=== PATIENT | female | born 2000 | race Caucasian/White ===

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

== ENCOUNTER 2024-08-19 12:19 | Emergency (ER) | payer SELFPAY ==
[2024-08-19 12:22] VITALS: BP 109/77; PULSE 99; TEMP 36.8; O2SAT 95; BMI 21.9
[2024-08-19 12:58] LABS: Basophils % 0.1 %; Eosinophils % 0.2 %; Hematocrit 45.4 % (36-47); Lymphocytes # 0.5 10^3/uL (0.8-4.8); Lymphocytes % 5.9 %; Mean Corpuscular HGB Conc 33.5 g/dL (30-55); Mean Corpuscular Hemoglobin 32.1 pg (27-33); Mean Platelet Volume 9.2 fL (7.4-10.4); Monocytes # 0.4 10^3/uL (0.2-0.9); Monocytes % 4.4 %; Neutrophils # 7.92 10^3/uL (1.8-7.7); Neutrophils % 89.2 %; Nucleated Red Blood Cells % 0 %; Platelet Count 249 10^3/cmm (157-399); Red Blood Count 4.73 10^6/uL (3.85-5.65); Red Cell Distribution Width 11.6 % (12.1-15.1); White Blood Count 8.88 10^3/uL (3.29-11.43)
[2024-08-19 13:21] LABS: HCG, Serum Qual Negative (Negative)
[2024-08-19 13:25] LABS: Lactic Sepsis W/Reflex 1.3 mmol/L (0.5-2.2)
[2024-08-19 13:26] LABS: Alanine Aminotransferase 34 U/L (0-33); Albumin Level 4.3 g/dL (3.5-5.2); Alkaline Phosphatase 69 U/L (35-105); Aspartate Amino Transferase 23 U/L (0-32); Blood Urea Nitrogen 13 mg/dL (6-20); Calcium 8.8 mg/dL (8.5-10.5); Carbon Dioxide 22 mmol/L (22-29); Chloride 105 mmol/L (98-107); Creatine Phosphokinase 78 U/L (26-192); Creatinine Clr Calc Pharmacy 144.7877; Globulin 2.6 g/dL (1.3-4.6); Glucose 131 mg/dL (65-115); Osmolality Calculated 290 mOsm/kg (285-295); Sodium 139 mmol/L (136-145); Total Bilirubin 0.7 mg/dL (0.15-1.2); Total Protein 6.9 g/dL (6.6-8.7)
[2024-08-19 13:36] VITALS: BP 112/74; PULSE 79; RESP 14; O2SAT 96
[2024-08-19 14:00] VITALS: BP 109/66; PULSE 87; RESP 22; O2SAT 97
[2024-08-19 14:10] LABS: Bilirubin Urine Negative (Negative); Blood Urine Negative (Negative); Glucose Urine UA Negative (Normal); Ketones Urine Trace (Negative); Leukocyte Esterase Urine Negative (Negative); Nitrate Urine Negative (Negative); Protein Urine Negative (Negative); Specific Gravity, Urine 1.025 (1.005-1.030); Urine Appearance Clear (CLEAR); Urine Color Yellow (Yellow); pH Urine 6.5 (5-7)
[2024-08-19 14:13] LABS: Add Urine Microscopic? YES; Bacteria Urine None Seen /hpf; Hyaline Casts Urine 5.36 /lpf; RBC Urine 0-2 /hpf (0-2); Squamous Epithelial Cell Urine 0-5 /hpf (0-5); WBC Urine 0-5 /hpf (0-5)
[2024-08-19 14:25] LABS: Amphetamines Screen Urine Negative (Negative); Barbiturates Screen Urine Negative (Negative); Benzodiazepines Screen Urine Negative (Negative); Cocaine Screen Urine Negative (Negative); Opiate Screen Urine Negative (Negative); PCP Screen Urine Negative (Negative); THC Screen Urine Negative (Negative)
--- NOTE | 2024-08-19 14:28 | ED_ITS ---
HPI - Seizure 2 General: Chief Complaint: Seizure Stated Complaint: seizure Time Seen by Provider: 08/19/24 12:43 History of Present Illness: HPI Narrative: 24-year-old female presents emergency ro om with complaint of seizure. Patient states she has had syncopal episodes in the past with outside seizures several years ago she was transferred out they thought she had a seizure ultimately she was diagnosed as having had a vasovagal episode. She feels like she can distinguish between the 2. She today had not been feeling well and thought she felt a seizure coming on lay down had convulsive like activity lost control of her bowels and reports that bystanders noted her to be twitching and foaming at the mouth. When she awoke from this episode she was fully aware of everything going on. From her description it does not sound like there is a very distinct postictal phase. She denies any recent fever. No recent head trauma. She is not currently on any antiseizure medications. Associated symptoms: Deny chest pain, chills or fever(s) Related Data Home Medications ?Medication ?Instructions ?Recorded ?Confirmed No Known Home Medications 08/19/2408/02 Allergies Allergy/AdvReac Type Severity Reaction Status Date / Time No Known Allergies Allergy Verified 08/19/24 12:27 Review of Systems 2 Const: Denies: fever(s) or chills Card: Denies: chest pain Resp: Denies: dyspnea GI: Denies: abdominal pain : Denies: dysuria, urinary frequency or urinary urgency Musc: Denies: neck pain or back pain Skin/Breast: Denies: rash PFSH ED 2 PFSH: Family History Denies family history of Diabetes CAD (coronary artery disease) Clotting disorder Dementia Hyperlipidemia Psychiatric illness Chronic kidney disease (CKD) Suicide Anesthesia complication Bleeding disorder Family history of premature coronary artery disease Lung disease Cancer Hypertension Stroke Social History Smoking and tobacco/nicotine status: never used tobacco/nicotine Alcohol intake: never Substance/Drug Use: never Adopted: No Caregiver/support person: No Lives independently: Yes Household members: family Housing: House Marital status: Single Number of children: 0 Number of grandchildren: 0 Highest education level completed: 11th Grade Current occupational status: unemployed and student Female Reproductive History: Spontaneous abortions: No Physical Exam 2 Const: COMMON NORMALS: no acute distress GENERAL APPEARANCE: cooperative and comfortable ORIENTATION/CONSCIOUSNESS: Yes awake, Yes oriented to person, Yes oriented to place and Yes oriented to time HENMT: COMMON NORMALS: normocephalic, atraumatic and hearing grossly normal bilaterally HEAD & SCALP: normocephalic and atraumatic Resp: COMMON NORMALS: normal respiratory effort, No retractions, No use of accessory muscles and clear to auscultation bilaterally AUSCULTATION: clear to auscultation bilaterally Cardio: COMMON NORMALS: regular rate, regular rhythm and No murmurs present (Cardio) RATE: regular rate RHYTHM: regular rhythm GI: COMMON NORMALS: Soft to palpation and No hepatosplenomegaly present A USCULTATION: Yes normoactive bowel sounds PALPATION: Yes Soft to palpation, No Tenderness to palpation present (GI), No Guarding due to palpation present (GI) and Yes No hepatosplenomegaly present Extremity: COMMON NORMALS: normal to inspection, capillary refill normal, no clubbing, cyanosis or edema, no calf tenderness and no pedal edema Neuro: SENSORIUM/ORIENTATION: Yes oriented to person, Yes oriented to place and Yes oriented to time Skin: COMMON NORMALS: no rashes or lesions noted GENERAL SKIN EXAM: no rashes or lesions noted Course 2 Vital Signs: Vital signs: Vital Signs Temperature 98.2 F 08/19/24 12:22 Pulse Rate 85 08/19/24 14:52 Respiratory Rate 22 H 08/19/24 14:52 Blood Pressure 122/63 08/19/24 14:52 Pulse Oximetry 97 08/19/24 14:52 Oxygen Delivery Me thod Room Air 08/19/24 12:22 MDM - Seizure MDM Narrative Medical decision making narrative: Discussing with the patient not sure she actually had a seizure. She may have had a vasovagal episode CPK and lactate are normal she does not only sound like she had a postictal phase. At this point did not start her on any antiepileptics. Will set her up for an outpatient EEG and follow-up with neurology. Advised patient she should not drive until this has been sorted out. The time of discharge she is fully recovered has no residual symptoms. Lab Data Attestation: I reviewed the patient's lab results. 08/19/24 12:51 08/19/24 12:51 Labs: Laboratory Results WBC 8.88 10^3/uL (3.29-11.43) 08/19/24 12:51 RBC 4.73 10^6/uL (3.85-5.65) 08/19/24 12:51 Hgb 15.20 g/dL (11.27-16.99) 08/19/24 12:51 Hct 45.4 % (36-47) 08/19/24 12:51 MCV 96.0 fl (85-98) 08/19/24 12:51 MCH 32.1 pg (27-33) 08/19/24 12:51 MCHC 33.5 g/dL (30-55) 08/19/24 12:51 RDW 11.6 % (12.1-15.1) L 08/19/24 12:51 Plt Count 249 10^3/cmm (157-399) 08/19/24 12:51 MPV 9.2 fL (7.4-10.4) 08/19/24 12:51 Neut % (Auto) 89.2 % 08/19/24 12:51 Lymph % (Auto) 5.9 % 08/19/24 12:51 [place] % (Auto) 4.4 % 08/19/24 12:51 Eos % (Auto) 0.2 % 08/19/24 12:51 Baso % (Auto) 0.1 % 08/19/24 12:51 Neut # (Auto) 7.92 10^3/uL (1.8-7.7) H 08/19/24 12:51 Lymph # (Auto) 0.5 10^3/uL (0.8-4.8) L 08/19/24 12:51 [place] # (Auto) 0.4 10^3/uL (0.2-0.9) 08/19/24 12:51 Eos # (Auto) 0.0 10^3/uL (0.0-0.8) 08/19/24 12:51 Baso # (Auto) 0.0 10^3/uL (0.0-0.1) 08/19/24 12:51 Nucleated RBC % (auto) 0 % 08/19/24 12:51 Nucleated RBCs # 0.0 /100WBC 08/19/24 12:51 Sodium 139 mmol/L (136-145) 08/19/24 12:51 Potassium 4.0 mmol/L (3.5-5.1) 08/19/24 12:51 Chloride 105 mmol/L (98-107) 08/19/24 12:51 Carbon Dioxide 22 mmol/L (22-29) 08/19/24 12:51 Anion Gap 16.0 (5-19) 08/19/24 12:51 BUN 13 mg/dL (6-20) 08/19/24 12:51 Creatinine 0.6 mg/dL (0.5-0.9) 08/19/24 12:51 GFR Calculation 125.0 mL/min (90-130) 08/19/24 12:51 Glucose 131 mg/dL (65-115) H 08/19/24 12:51 Calculated Osmolality 290 mOsm/kg (285-295) 08/19/24 12:51 Lactic Acid 1.3 mmol/L (0.5-2.2) 08/19/24 12:51 Calcium 8.8 mg/dL (8.5-10.5) 08/19/24 12:51 Total Bilirubin 0.7 mg/dL (0.15-1.2) 08/19/24 12:51 AST 23 U/L (0-32) 08/19/24 12:51 ALT 34 U/L (0-33) H 08/19/24 12:51 Alkaline Phosphatase 69 U/L (35-105) 08/19/24 12:51 Creatine Kinase 78 U/L (26-192) 08/19/24 12:51 Total Protein 6.9 g/dL (6.6-8.7) 08/19/24 12:51 Albumin 4.3 g/dL (3.5-5.2) 08/19/24 12:51 Globulin 2.6 g/dL (1.3-4.6) 08/19/24 12:51 HCG, Qual Negative (Negative) 08/19/24 12:51 Urine Color Yellow (Yellow) 08/19/24 14:00 Urine Appearance Clear (CLEAR) 08/19/24 14:00 Urine pH 6.5 (5-7) 08/19/24 14:00 Ur Specific [place] 1.025 (1.005-1.030) 08/19/24 14:00 Urine Protein Negative (Negative) 08/19/24 14:00 Urine Glucose (UA) Negative (Normal) 08/19/24 14:00 Urine Ketones Trace (Negative) 08/19/24 14:00 Urine Blood Negative (Negative) 08/19/24 14:00 Urine Nitrate Negative (Negative) 08/19/24 14:00 Urine Bilirubin Negative (Negative) 08/19/24 14:00 Urine Urobilinogen 1.0 mg/dL (Negative) 08/19/24 14:00 Ur Leukocyte Esterase Negative (Negative) 08/19/24 14:00 Urine RBC 0-2 /hpf (0-2) 08/19/24 14:00 Urine WBC 0-5 /hpf (0-5) 08/19/24 14:00 Ur Squamous Epith Cells 0-5 /hpf (0-5) 08/19/24 14:00 Amorphous Sediment Not Reportable 08/19/24 14:00 Urine Bacteria None seen /hpf (NONE) 08/19/24 14:00 Hyaline Casts 5.36 /lpf 08/19/24 14:00 Urine Opiates Screen Negative ng/mL (Negative) 08/19/24 14:00 Ur Barbiturates Screen Negative ng/mL (Negative) 08/19/24 14:00 Ur Phencyclidine Scrn Negative ng/mL (Negative) 08/19/24 14:00 Ur Amphetamines Screen Negative ng/mL (Negative) 08/19/24 14:00 U Benzodiazepines Scrn Negative ng/mL (Negative) 08/19/24 14:00 Urine Cocaine Screen Negative ng/mL (Negative) 08/19/24 14:00 U Marijuana (THC) Screen Negative ng/mL (Negative) 08/19/24 14:00 All radiology interpretation(s) finalized by discharge Discharge Plan Discharge Patient Disposition: Home Clinical Impression: Generalized seizure Condition: Stable Prescriptions: No Action No Known Home Medications Discharge Orders: Discharge ED (Routine); Ordered 08/19/24 Ordered By: Deangelo Lopez Referrals: Tomi Lomeli DO [Primary Care Provider] - Discharge Diet: Usual diet Discharge Activity: Limit activity as instructed Patient Instructions: Opioid Safety, Pain Management Activity Restrictions/Additional Instructions: Thank you for choosing [facility] for your healthcare needs today. It is very important that you follow up as instructed or that you return to the Emergency Department should you have concerns or if your condition changes or worsens in any way. You are seen emergency room after reporting having had a seizure. Laboratory test did not show any abnormalities. Will discharge you home. At this point do not recommend any antielliptic medications. Will set you up for an outpatient EEG and follow-up with neurology. Print Language: Mongolian Coding Level of Care Code ED Machine Operator Slitter Technician for Shahbaz Guadalupe
[2024-08-19 14:52] VITALS: BP 122/63; PULSE 85; RESP 22; O2SAT 97
--- NOTE | 2024-08-20 07:55 | DCPLANNER ---
Message sent to Neurology for follow up and EEG
== END 2024-08-19 14:52 | disposition home or self-care (01) ==
PROVIDERS: Emergency Provider Family Medicine; PCP Family Medicine
DX: R56.9 Unspecified convulsions (principal)
CPT/HCPCS: 80053; 80306; 81001; 82550; 83605; 84703; 85025; 99283

== ENCOUNTER → 2024-10-14 10:35 | Outpatient (BNVA) | payer SELFPAY | PROVIDERS: PCP Family Medicine; Referring Provider Family Medicine; Visit Provider Psychiatry & Neurology Neurology | DX: G40.909 Epilepsy, unspecified, not intractable, without status epilepticus (principal); R56.9 Unspecified convulsions; E55.9 Vitamin D deficiency, unspecified | CPT/HCPCS: 36415; 82306; 82607; 82746; 83735; 83921; 84439; 84443; 84481 ==